=== PATIENT | female | born 1975 ===

== ENCOUNTER 2021-02-19 04:30 | Day surgery (SDC) | payer OTHER ==
[~2021-02-19 04:30] MED LIST: FORTAMET500 MG PO
== END 2021-02-19 13:50 | disposition home or self-care (01) ==
LOC: CIR.AMB 04:30
PROVIDERS: ATTEND Specialist
DX: K80.10 Calculus of gallbladder with chronic cholecystitis without obstruction (principal); Z20.822 Contact with and (suspected) exposure to COVID-19